=== PATIENT | male | born 1970 | race Two or more races ===

== ENCOUNTER 2020-05-31 12:09 | Emergency (ER) | payer MEDICAID, OTHER ==
[~2020-05-31] VITALS: Ht 170.2 cm; Wt 117.9 kg
[2020-05-31 12:21] VITALS: BP 143/85
== END 2020-05-31 14:31 | disposition home or self-care (01) ==
LOC: ER 12:09
DX: U07.1 COVID-19 (principal); R06.02 Shortness of breath; R50.9 Fever, unspecified
CPT/HCPCS: 36415; 71045; 87426

== ENCOUNTER 2020-09-13 23:26 | Emergency (ER) | payer MEDICAID, OTHER ==
[~2020-09-13] VITALS: Ht 170.2 cm; Wt 79.4 kg
[2020-09-14] MEDS ORDERED: cefTRIAXone SOD 1,000 MG VL IM ONE (02:15)
[2020-09-14] MEDS ORDERED: AMOXICILLIN/CLAVUL 875 MG TAB PO ONE (02:15)
[2020-09-14] MEDS ORDERED: ACETAMINOPHEN/CODEINE#3 (300/30mg) TAB PO ONE (02:15)
[2020-09-14 02:38] VITALS: BP 144/84
== END 2020-09-14 03:23 | disposition home or self-care (01) ==
LOC: ER 23:27
DX: J34.0 Abscess, furuncle and carbuncle of nose (principal)
CPT/HCPCS: 96372; 99283; J0696

== ENCOUNTER 2021-01-03 06:49 | Emergency (ER) | payer OTHER ==
[~2021-01-03] VITALS: Ht 167.6 cm; Wt 108.9 kg
[2021-01-03 07:20] VITALS: BP 137/76
[2021-01-03] MEDS ORDERED: LIDOCAINE 1% HCL (LOCAL ANESTH.) INJ 20ML MDV ONE (07:36)
[2021-01-03] MEDS ORDERED: cefTRIAXone SOD 1,000 MG VL IM ONE (07:45)
== END 2021-01-03 07:58 | disposition home or self-care (01) ==
LOC: ER 06:49
DX: J02.9 Acute pharyngitis, unspecified (principal); R05 Cough
CPT/HCPCS: 96372; 99283; J0696; J2001

== ENCOUNTER 2024-02-08 18:08 | Emergency (ER) | payer OTHER ==
[~2024-02-08] VITALS: Ht 167.6 cm; Wt 113.7 kg
[2024-02-08 18:47] VITALS: BP 156/90; PULSE 70; RESP 20; TEMP 98; O2SAT 95
[2024-02-08] MEDS ORDERED: IBUP-1455 PO (19:26)
[2024-02-08] MEDS: IBUPROFEN 800 MG TAB PO ONE (19:31)
== END 2024-02-08 19:37 | disposition home or self-care (01) ==
LOC: ER 18:08
DX: S60.032A Contusion of left middle finger without damage to nail, initial encounter (principal); S60.042A Contusion of left ring finger without damage to nail, initial encounter; S60.052A Contusion of left little finger without damage to nail, initial encounter; W22.8XXA Striking against or struck by other objects, initial encounter; Y93.89 Activity, other specified; Y92.89 Other specified places as the place of occurrence of the external cause; Y99.0 Civilian activity done for income or pay
CPT/HCPCS: 73130